=== PATIENT | female | born 1955 | race Caucasian/White ===

== ENCOUNTER 2021-09-23 10:29 | Outpatient (REF) | payer MEDICARE, SELFPAY ==
--- NOTE | ~2021-09-23 | XR_ITS ---
EXAMINATION: XR CHEST CLINICAL INFORMATION: Fever COMPARISON: None TECHNIQUE: 2 views of the chest were obtained. FINDINGS: No significant abnormality is noted involving the heart, lungs, mediastinum, bony thorax or soft tissues. XR/XR chest 2V IMPRESSION: Unremarkable examination.
[2021-09-23 11:08] LABS: Binax Internal Control QC Valid; Binax Now Covid-19 Ag Negative (Negative)
== END 2021-09-23 10:30 | disposition home or self-care (01) ==
LOC: HO.HMGCX 10:29
PROVIDERS: Visit Provider Physician Assistant Medical
DX: Z20.822 Contact with and (suspected) exposure to COVID-19 (principal); R05.9 Cough, unspecified; B34.9 Viral infection, unspecified
CPT/HCPCS: 71046

== ENCOUNTER 2021-09-24 18:00 | Emergency (ER) | payer MEDICARE, SELFPAY ==
[2021-09-24 18:31] VITALS: BP 116/75; PULSE 114; RESP 18; TEMP 37.3; O2SAT 96; BMI 32.9
[2021-09-24 22:29] VITALS: BP 110/59; PULSE 100; RESP 16; TEMP 36.9; O2SAT 98
[2021-09-24 22:49] LABS: MANUAL DIFF FLAG NO
[2021-09-24 22:51] LABS: Appearance Urine HAZY; Color Urine YELLOW; Glucose Urine UA NEG (NEG); Leukocyte Esterase Urine 2+ (NEG); Nitrite Urine NEG (NEG); PH 5.5 (5.0-8.0); Specific Gravity - Urine >= 1.030 (1.005-1.025); UACC Culture Trigger YES; Urine Blood NEG (NEG); Urine Ketones 15 MG/DL (NEG); Urine Protein 1+ MG/DL (NEG-TRACE)
[2021-09-24 22:53] LABS: Basophils Percent Auto 0.4 % (0-2); Eosinophils Percent Auto 1.1 % (0-4); Hematocrit 40.1 % (37.0-47.0); Lymphocytes Absolute Auto 0.4 X10*3/uL (1.2-4.9); Lymphocytes Percent Auto 14.3 % (20-40); Mean Corpuscular HGB Conc 32.4 g/dl (31.0-35.0); Mean Corpuscular Hemoglobin 28.4 pg (27.0-33.0); Mean Corpuscular Volume 87.6 fL (80.0-98.0); Mean Platelet Volume 9.6 fL (9.4-12.3); Monocytes Absolute Auto 0.1 X10*3/uL (0.1-1.2); Monocytes Percent Auto 3.4 % (2-11); Neutrophils Absolute Auto 2.2 x10*3/uL (2.0-8.3); Neutrophils Percent Auto 80.8 % (45-73); Platelet Count 109 X10*3/uL (160-400); Red Blood Count 4.58 X10*6/uL (4.20-5.50); Red Cell Distribution Width 14.6 % (11.0-16.0); White Blood Count 2.7 X10*3/uL (4.8-10.8)
[2021-09-24 22:56] LABS: WBC Urine 30-49 /HPF (0-4)
[2021-09-24 22:57] LABS: Bacteria Urine 3+ /LPF; Calcium Oxalate Crystals Urine 2+ /LPF; Mucus Urine 2+ /LPF; Renal Epithelial Cells Urine 1+ /LPF; Squamous Epithelial Cell Urine 1+ /LPF
[2021-09-24 23:07] LABS: Anion Gap 15 (12-20); Blood Urea Nitrogen 24 mg/dL (9-16); Calcium 9.3 mg/dL (8.4-10.2); Carbon Dioxide 27 mmol/L (22-29); Chloride 94 mmol/L (96-108); Creatinine Clr Calc Pharmacy 48.5; Estimated Glomerular Filt Rate 49; Glucose Random 125 mg/dL (60-115); Potassium 3.6 mmol/L (3.3-5.1); Sodium 132 mmol/L (135-145)
[2021-09-25 01:11] VITALS: BP 98/64; PULSE 110; RESP 16; TEMP 37.2; O2SAT 97
--- NOTE | 2021-09-25 01:13 | PC.NURSE ---
Patient now reporting dizziness.
[2021-09-25 02:34] LABS: Influenza A PCR NEGATIVE (Negative); Influenza B PCR NEGATIVE (Negative); Resp Syncy Virus RNA Qual PCR NEGATIVE (Negative); SARS COV2 PCR INHOUSE NEGATIVE (Negative)
[2021-09-25] MEDS: cephALEXin 500 MG CAPSULE PO (02:47)
[2021-09-25] MEDS: 0.9 % Sodium Chloride 1,000 ML 999 ML IV (02:47)
--- NOTE | 2021-09-25 04:29 | ED_ITS ---
HPI - General Adult General Chief complaint: Fever Stated complaint: Fever/?UTI Time Seen by Provider: 09/25/21 01:49 Source: patient Mode of arrival: ambulatory Limitations: no limitations History of Present Illness HPI narrative: 66-year-old female who presented to the emergency department for viral-like illness times 1 week. The patient complains of dizziness, fever, shaking chills, sweats, fatigue x1 week. She denies cough, shortness of breath or dyspnea on exertion. She states she is having some lower back pain. She has had 4-5 episodes of diarrhea per day with no blood in the diarrhea. She denied frequency urgency or dysuria. The patient was seen 2 days prior at [facility] and had a negative chest x-ray, COVID-19 test and urinalysis. She states this evening her symptoms are getting worse, she was feeling more fatigued therefore she came to the emergency department for evaluation. Related Data Home Medications Medication Instructions Recorded Confirmed amlodipine 2.5 mg tablet 2.5 mg PO DAILY 09/23/21 estradiol g VAGINAL 09/23/21 lisinopril 40 mg tablet 40 mg PO DAILY 09/23/21 Previous Rx's Medication Instructions Recorded cephalexin 500 mg capsule 500 mg PO TID 7 Days #21 cap 09/25/21 Allergies Allergy/AdvReac Type Severity Reaction Status Date / Time No Known Allergies Allergy Verified 09/23/21 09:47 Review of Systems Review of Systems: Yes all other systems are reviewed and are negative [facility] Past Medical History [facility] Narrative: Past medical history: Hypertension, COVID-19 infection July 2021, patient has had 2 Pfizer COVID-19 vaccinations and a booster which was given on 08/20/2021. Past surgical history: , polyp removals. Social history: She denies tobacco use, she occasionally drinks alcohol once or twice a week, she denies drug use. Medical History (Updated 09/25/21 @ 04:37 by Real Singer MD) HTN (hypertension) Social History Social History Advance Directives: No Advance Directives Information Provided: No Physical Exam Vital Signs: Vital Signs: Last Vital Signs Temp 98.9 F 09/25/21 01:11 Pulse 110 H 09/25/21 01:11 Resp 16 09/25/21 01:11 BP 98/64 09/25/21 01:11 Pulse Ox 97 09/25/21 01:11 BMI result Body Mass Index 32.9 Const: General: cooperative and no acute distress Orientation/consciousness: oriented to person and oriented to place Limitations: no limitations HENMT: Head: Yes normal to inspection, Yes normocephalic and Yes atraumatic Ears: external ears normal General nose exam: Normal external nose present Face and sinus: Yes normal facial exam Mouth: Normal oral and palatal mucosa present Throat: Yes posterior oropharynx normal Eyes: General: appearance normal, both eyes and all related structures Pupils: Equal, round and reactive pupils present Neck: Neck: Yes normal visual inspection, Yes no lymphadenopathy, Yes trachea midline and Yes supple Chest: Chest palpation & inspection: normal inspection of the chest and normal palpation of entire chest wall Resp: Effort & Inspection: normal respiratory effort and able to speak in complete sentences Auscultation: clear to auscultation bilaterally Cardio: Rate: regular rate Rhythm: regular rhythm Heart sounds: S1 normal heart sound present, S2 normal heart sound present and no murmurs GI: Inspection: Yes normal to inspection Palpation (GI): Soft to palpation, nontender and no guarding Auscultation: normal bowel sounds : General: Yes no CVA tenderness Back/Spine/Pelvis: Back: no CVA tenderness Skin: General skin exam: no rashes or lesions noted Neuro: General: oriented to person and oriented to place Cranial nerves: Yes CN's II-XII intact bilaterally and Yes Equal, round and reactive pupils present Cognition (Neuro): normal cognition Motor exam (neuro): 5/5 motor strength present throughout Extrem: General: Yes normal to inspection Psych: Appearance: grossly normal Speech and movement: Normal speech and movement present Affect: normal affect Attitude: cooperative Thought process: Normal thought process present Thought content: Normal thought content present Course Course Course Narrative: 66-year-old female who presents emergency department for evaluation of viral-like illness x1 week with worsening symptoms over the past 24 hours. Vital signs revealed tachycardia with a pulse of 114 otherwise were unremarkable. Physical examination was unremarkable. Laboratory evaluation revealed a low WBC of 2700 and a low platelet count of a 289152. Patient's sodium and chloride were low 132 and 94, BUN was elevated at 24, glucose was elevated at 125. Chest x-ray from 2 days ago was negative. Influenza, RSV and COVID-19 test today were negative. Urinalysis revealed 2+ leukocyte esterase. Microscopic revealed 49 WBCs and 3+ bacteria, 1+ squamous cells. At this time I do believe that the patient has an acute viral illness and may now have a urinary tract infection. She also appears to be dehydrated. She was treated with normal saline IV x1 L. She was also given Keflex 500 mg orally. Patient will be treated with Keflex 500 mg 3 times a day for 7 days for urinary tract infection. She was given printed and verbal instructions and discharged home. I did tell her about her low white blood cell count low platelet count and the need to have this repeated in the next 2 weeks by her PCP to make sure that they go back to normal. Medical Decision Making Lab Data Result diagrams: 09/24/21 22:43 09/24/21 22:43 Labs: Lab Results 09/24/21 09/24/21 09/24/21 Range/Units 22:43 22:43 22:43 WBC 2.7 L (4.8-10.8) X10*3/uL RBC 4.58 (4.20-5.50) X10*6/uL Hgb 13.0 (12.0-16.0) g/dl Hct 40.1 (37.0-47.0) % MCV 87.6 (80.0-98.0) fL MCH 28.4 (27.0-33.0) pg MCHC 32.4 (31.0-35.0) g/dl RDW 14.6 (11.0-16.0) % Plt Count 109 L (160-400) X10*3/uL MPV 9.6 (9.4-12.3) fL Immature Gran % (Auto) 0.0 (0.0-0.4) % Neut % (Auto) 80.8 H (45-73) % Lymph % (Auto) 14.3 L (20-40) % [place] % (Auto) 3.4 (2-11) % Eos % (Auto) 1.1 (0-4) % Baso % (Auto) 0.4 (0-2) % Lymph # (Auto) 0.4 L (1.2-4.9) X10*3/uL [place] # (Auto) 0.1 (0.1-1.2) X10*3/uL Eos # (Auto) 0.0 (0.0-0.4) X10*3/uL Baso # (Auto) 0.0 (0.0-0.2) X10*3/uL Abs Immat Gran (auto) 0.00 (0.00-0.03) X10*3/uL Absolute Neuts (auto) 2.2 (2.0-8.3) x10*3/uL Absolute Nucleated RBC 0.000 (0.0-0.012) X10*3/uL Nucleated RBC % (auto) 0.0 (0.0-0.2) /100WBC Sodium 132 L (135-145) mmol/L Potassium 3.6 (3.3-5.1) mmol/L Chloride 94 L (96-108) mmol/L Carbon Dioxide 27 (22-29) mmol/L Anion Gap 15 (12-20) BUN 24 H (9-16) mg/dL Creatinine 1.10 (0.5-1.4) mg/dL Estim Creat Clear Calc 48.5 Estimated GFR 49 Random Glucose 125 H (60-115) mg/dL Lactic Acid 1.0 (0.5-2.0) mmol/L Calcium 9.3 (8.4-10.2) mg/dL Urine Color Urine Appearance Urine pH (5.0-8.0) Ur Specific [place] (1.005-1.025) Urine Protein (NEG-TRACE) MG/DL Urine Glucose (UA) (NEG) MG/DL Urine Ketones (NEG) MG/DL Urine Blood (NEG) Urine Nitrite (NEG) Ur Leukocyte Esterase (NEG) Urine RBC (0) /HPF Urine WBC (0-4) /HPF Ur Squamous Epith Cells /LPF Ur Renal Epithelial Cell /LPF Calcium Oxalate Crystal /LPF Urine Bacteria /LPF Urine Mucus /LPF Influenza Type A (PCR) (Negative) Influenza Type B (PCR) (Negative) RSV RNA Qual (PCR) (Negative) SARS-CoV-2 RNA (RT-PCR) (Negative) 09/24/21 09/25/21 Range/Units 22:43 01:28 WBC (4.8-10.8) X10*3/uL RBC (4.20-5.50) X10*6/uL Hgb (12.0-16.0) g/dl Hct (37.0-47.0) % MCV (80.0-98.0) fL MCH (27.0-33.0) pg MCHC (31.0-35.0) g/dl RDW (11.0-16.0) % Plt Count (160-400) X10*3/uL MPV (9.4-12.3) fL Immature Gran % (Auto) (0.0-0.4) % Neut % (Auto) (45-73) % Lymph % (Auto) (20-40) % [place] % (Auto) (2-11) % Eos % (Auto) (0-4) % Baso % (Auto) (0-2) % Lymph # (Auto) (1.2-4.9) X10*3/uL [place] # (Auto) (0.1-1.2) X10*3/uL Eos # (Auto) (0.0-0.4) X10*3/uL Baso # (Auto) (0.0-0.2) X10*3/uL Abs Immat Gran (auto) (0.00-0.03) X10*3/uL Absolute Neuts (auto) (2.0-8.3) x10*3/uL Absolute Nucleated RBC (0.0-0.012) X10*3/uL Nucleated RBC % (auto) (0.0-0.2) /100WBC Sodium (135-145) mmol/L Potassium (3.3-5.1) mmol/L Chloride (96-108) mmol/L Carbon Dioxide (22-29) mmol/L Anion Gap (12-20) BUN (9-16) mg/dL Creatinine (0.5-1.4) mg/dL Estim Creat Clear Calc Estimated GFR Random Glucose (60-115) mg/dL Lactic Acid (0.5-2.0) mmol/L Calcium (8.4-10.2) mg/dL Urine Color YELLOW Urine Appearance HAZY Urine pH 5.5 (5.0-8.0) Ur Specific [place] >= 1.030 H (1.005-1.025) Urine Protein 1+ H (NEG-TRACE) MG/DL Urine Glucose (UA) NEG (NEG) MG/DL Urine Ketones 15 (NEG) MG/DL Urine Blood NEG (NEG) Urine Nitrite NEG (NEG) Ur Leukocyte Esterase 2+ H (NEG) Urine RBC 1-4 (0) /HPF Urine WBC 30-49 H (0-4) /HPF Ur Squamous Epith Cells 1+ /LPF Ur Renal Epithelial Cell 1+ /LPF Calcium Oxalate Crystal 2+ /LPF Urine Bacteria 3+ /LPF Urine Mucus 2+ /LPF Influenza Type A (PCR) NEGATIVE (Negative) Influenza Type B (PCR) NEGATIVE (Negative) RSV RNA Qual (PCR) NEGATIVE (Negative) SARS-CoV-2 RNA (RT-PCR) NEGATIVE (Negative) Discharge Plan Discharge Clinical Impression: Viral syndrome, Acute UTI, Acute dehydration Patient Disposition: Home, Self-Care Instructions: Urinary Tract Infection in Women (ED), Viral Syndrome (ED) Additional Instructions: Your blood work today revealed a low white blood cell count of 2, (4,800- 10,800) and a low platelet count of a 109,000 (160,000 - 400,000) I believe that these tests are low secondary to a viral infection and they should get better once you feel better. It is important that you follow-up with her doctor 1-2 weeks after you are feeling better to get a repeat complete blood count to make sure that these testicle back to normal. The rest of your blood work is consistent with dehydration. Your urine test revealed 49 white blood cells and 3+ bacteria, this is consistent with a urine infection. Take Keflex (cephalexin) 500 mg pills, 1 pill 3 times a day for 7 days. Take ibuprofen 200 mg pills, 3 pills every 6 hours as needed for pain or fever Take Tylenol (acetaminophen) 500 mg pills, 2 pills every 4 to 6 hours as needed for pain or fever. Follow-up with your doctor in 2 days. Please return to the emergency department if your symptoms get worse or if you develop any symptoms that are concerning to you. Prescriptions: New cephalexin 500 mg capsule 500 mg PO TID 7 Days Qty: 21 RF: 0 No Action lisinopril 40 mg tablet 40 mg PO DAILY RF: 0 amlodipine 2.5 mg tablet 2.5 mg PO DAILY RF: 0 estradiol 0.01 % (0.1 mg/gram) cream vaginal RF: 0
== END 2021-09-25 05:09 | disposition home or self-care (01) ==
PROVIDERS: Emergency Provider Emergency Medicine Emergency Medical Services; PCP Internal Medicine
DX: B34.9 Viral infection, unspecified (principal); N39.0 Urinary tract infection, site not specified; E86.0 Dehydration; Z20.822 Contact with and (suspected) exposure to COVID-19; R50.9 Fever, unspecified; I10 Essential (primary) hypertension
CPT/HCPCS: 0241U; 36415; 80048; 81001; 83605; 85025; 87040; 87086; 96360; 99284

== ENCOUNTER 2024-07-23 09:55 | Outpatient (REF) | payer MEDICARE, SELFPAY ==
--- NOTE | ~2024-07-23 | XR_ITS ---
EXAMINATION: XR SHOULDER, RIGHT CLINICAL INFORMATION: Right shoulder pain COMPARISON: None available. TECHNIQUE: Three views of the right shoulder. FINDINGS: No evidence for acute fracture or dislocation. Lucency observed in the glenoid fossa which could potentially reflect the glenoid margin cyst or possibly an erosion. Minimal spurring at the greater tuberosity. There is a calcification injecting at the rotator cuff level which appears most consistent with calcific tendinitis. Mild AC joint space narrowing. No clavicular fracture. XR/XR shoulder RT min 2V IMPRESSION: 1. No acute process. Degenerative changes. 2. Lucency in the glenoid fossa could potentially reflect a glenoid margin cyst or possibly an erosion. 3. Calcific tendinitis. Electronically signed by: Jorge Luis Jaime MD 07/23/2024 02:51 PM [facility]
== END 2024-07-23 09:56 | disposition home or self-care (01) ==
LOC: HO.HMGCX 09:55
PROVIDERS: PCP Internal Medicine; Visit Provider Physician Assistant
DX: M25.511 Pain in right shoulder (principal); S43.401A Unspecified sprain of right shoulder joint, initial encounter
CPT/HCPCS: 73030; 96372; 99202; J1885

== ENCOUNTER 2024-07-23 09:55 | Outpatient (AMB) | payer MEDICARE, SELFPAY ==
--- NOTE | 2024-07-23 09:56 | MHC.OFFWIV ---
Intake Vital Signs 07/23/24 10:09 Height 5 ft 3 in Weight 175 lb BMI 31.0 BP 128/80 Blood Pressure Location Rt brachial Position Sitting Pulse 67 Pulse Source Pulse Oximeter Pulse Oximetry (%) 97 Intake Visit Reasons: EP Rt shoulder from fall Intake Note: pt is here for right upper arm, fall on the street about 30 min ago Patient Tobacco Use Status: Never used Tobacco Allergies No Known Allergies Allergy (Verified 07/23/24 10:09) Do you need a note to return to daycare/school/sports/work: No HPI HPI Comments History of Present Illness Details Patient is a 69-year-old female who was taking her daily walk earlier today when she tripped and fell forward onto her right knee and then onto her hand and right shoulder. She tells me her knee is fine, it is bleeding into put a Band-Aid on it. She states that she is having the most pain on the side of her right arm, close to her shoulder. It is difficult to move her arm/shoulder without having pain. She denies pain in her elbow wrist or hand. [facility] Medical History (Updated 07/23/24 @ 11:05 by Bindu Aguilar PA-C) HTN (hypertension) Social History Patient Tobacco Use Status: Never used Tobacco Review of Systems Const All systems reviewed & are unremarkable except as noted in HPI and below Physical Exam Vital Signs: Last Vital Signs Pulse 67 07/23/24 10:09 BP 128/80 07/23/24 10:09 Pulse Ox 97 07/23/24 10:09 BMI result Body Mass Index 31.0 Const General: cooperative, healthy appearing, comfortable, well developed and acute distress (2/2 pain) mild Orientation/consciousness: patient oriented x3 Limitations: no limitations HEENT Head: Yes normal to inspection Ears: hearing grossly normal bilaterally General nose exam: Normal external nose present Face and sinus: Yes normal facial exam Eyes General: appearance normal, both eyes and all related structures Neck Neck: Yes normal visual inspection and Yes full ROM Resp Effort & Inspection: normal respiratory effort and able to speak in complete sentences Back/Spine/Pelvis Cervical Spine: normal cervical lordosis, cervical ROM normal and No Cervical spine tenderness Skin General skin exam: no rashes or lesions noted Neuro General: patient oriented x3 Extrem General: Yes normal to inspection Left upper extremity: normal to inspection, shoulder/upper arm Details: inspection abnormal, tenderness Location: of the proximal humerus and over the biceps tendon and abnormal ROM (Patient unable to perform any range of motion testing 2/2 pain) Details: held in an abnormal fashion Details: in ADduction; no swelling, no lacerations, no ecchymosis, no penetrating wound, no deformity and no unsual warmth and elbow/forearm Details: normal to inspection and normal ROM; no tenderness and no swelling Office Meds ketorolac 30 mg/mL (1 mL) injection solution Performing Provider: Bindu Aguilar PA-C Performing Location: [facility] Administered by: Sara Castillo RN on 07/23/24 10:43 Dose Route Admin Location Dispensed Lot Number Expiration Date [facility] [place] [employer] 30 mg IM right gluteal 1 mL [id number] 03/09/25 11665-957-32 [employer] Assessment & Plan Assessment & Plan (1) Right shoulder pain: Code(s): M25.511 - Pain in right shoulder Qualifiers: Chronicity: acute Qualified Code(s): M25.511 - Pain in right shoulder Plan: Vital signs are stable, patient very teary with exam, when I tried to do [id number] testing, she became nauseous and lightheaded because of the pain so I gave her 30 mg IM Toradol injection. She was unable to walk over to x-ray, we wheelchaired her over for shoulder x-ray. (2) Sprain of right shoulder: Code(s): S43.401A - Unspecified sprain of right shoulder joint, initial encounter Qualifiers: Encounter type: initial encounter Shoulder sprain type: unspecified sprain Qualified Code(s): S43.401A - Unspecified sprain of right shoulder joint, initial encounter Plan: Shoulder x-ray looked unremarkable to me, pending final radiologist read. Possible rotator cuff tendinopathy or biceps tendinopathy, we will place in his shoulder sling and have her follow up with her PCP if no improvement in the pain over the next 1-2 weeks. Plan See above Orders: Orders AMB Ketorolac Injection Today M25.511 - Pain in right shoulder XR shoulder RT min 2V Today M25.511 - Pain in right shoulder Coding Level of Care Code New Pt Level 4 (03477) Diagnoses Acute pain of right shoulder M25.511 Chronicity: acute Sprain of right shoulder, unspecified shoulder sprain type, initial encounter S43.401A Encounter type: initial encounter Shoulder sprain type: unspecified sprain
[2024-07-23 10:09] VITALS: BP 128/80; PULSE 67; O2SAT 97; BMI 31.0
== END 2024-07-23 11:41 | disposition home or self-care (01) ==
PROVIDERS: PCP Internal Medicine; Visit Provider Physician Assistant
DX: M25.511 Pain in right shoulder (principal); S43.401A Unspecified sprain of right shoulder joint, initial encounter